=== PATIENT | male | born 1965 | race Caucasian/White ===

== ENCOUNTER 2018-03-26 15:14 | Emergency (ER) ==
[2018-03-26 15:19] VITALS: BP 149/103; TEMP 97.2; BMI 26.8
--- NOTE | 2018-03-26 15:42 | ED.PDOC ---
General ED Provider: Dr. KRIS MUSA Chief Complaint: Extremity Pain/Injury Stated Complaint: Patient is a 52 year old male who comes to the ER with pain in left leg from hip to knee. He denies any obvious injury, states walk with a limp, in a wheelchair at the moment. Admits use of Methamphetamine last week. Has not taken any Tylenol or Motrin Time Seen by Physician: 15:30 Mode of Arrival: Walk-In Information Source: Patient Nursing and Triage Documentation Reviewed and Agree: Yes Does patient meet sepsis criteria?: No System Inflammatory Response Syndrome: Not Applicable Sepsis Protocol: For patient's 13 years and over: Temp is 96.8 and below OR 101 and greater Pulse >90 BPM Resp >20/minute Acutely Altered Mental Status Are patient's symptoms suggestive of a new infection, such as: -Pneumonia -Skin, Soft Tissue -Endocarditis -UTI -Bone, Joint Infection -Implantable Device -Acute Abdominal Infection -Wound Infection -Meningitis -Blood Stream Catheter Infection -Unknown Review of Systems - Review Of Systems Constitutional: Reports: No symptoms Respiratory: Reports: No symptoms Cardiac: Reports: No symptoms GI: Reports: No symptoms : Reports: No symptoms Musculoskeletal: Reports: Joint pain Skin: Reports: No symptoms Neurological: Reports: Anxiety All Other Systems: Reviewed and Negative Past Medical History - Past Medical History Previously Healthy: Yes Endocrine: Reports: None Cardiovascular: Reports: Hypertension Respiratory: Reports: None Hematological: Reports: None Gastrointestinal: Reports: None Genitourinary: Reports: None Neuro/Psych: Reports: Anxiety Musculoskeletal: Reports: Arthritis, Joint Pain Cancer: Reports: None - Surgical History General Surgical History: Reports: Back Surgery, Other (Facial surgeries ) - Family History Family History: Reports: None - Social History Smoking Status: Heavy tobacco smoker Hx Substance Use: Yes (meth a week ago) Alcohol Screening: None - Immunizations Tetanus Shot up to Date: Yes Physical Exam - Physical Exam Appearance: Well-appearing, No pain distress, Well-nourished Eyes: ROSEMARY, EOMI, Conjunctiva clear ENT: Ears normal, Nose normal, Oropharynx normal Respiratory: Airway patent, Breath sounds clear, Breath sounds equal, Respirations nonlabored Cardiovascular: RRR, Pulses normal, No rub, No murmur GI/: Soft, Nontender, No masses, Bowel sounds normal, No Organomegaly Musculoskeletal: Limited ROM (at the left hip ) Skin: Warm, Dry, Normal color Neurological: Sensation intact, Motor intact, Reflexes intact, Cranial nerves intact, Alert, Oriented Psychiatric: Affect appropriate, Mood appropriate Interpretation - Radiology Interpretation Radiology Interpretation By: ED Physician Radiology Results: No acute changes Exam Interpreted: Other (x ray of hip, femur and Knee. ) Critical Care Note - Critical Care Note Total Time (mins): 0 Course - Course Orders, Labs, Meds: Orders Category Date Time Status Ibuprofen [Motrin] MEDS 03/26/18 15:43 Discontinued 800 mg PO ONCE STA FEMUR, LEFT 2 VIEWS Stat RADS 03/26/18 15:42 Taken HIP, LEFT 2 VIEWS Stat RADS 03/26/18 15:42 Taken KNEE, LEFT 4 VIEWS Stat RADS 03/26/18 15:42 Taken Medications Discontinued Medications Generic Name Dose Route Start Last Admin Trade Name Freq PRN Reason Stop Dose Admin Ibuprofen 800 mg 03/26/18 15:43 03/26/18 16:10 Motrin PO 03/26/18 15:44 800 mg ONCE STA Administration Vital Signs: Temp Pulse Resp BP Pulse Ox 03/26/18 15:15 97.2 F L 110 H 16 149/103 H 96 Departure - Departure Time of Disposition: 16:26 Disposition: HOME SELF-CARE Discharge Problem: Hip pain, left Leg pain, diffuse Qualifiers: Laterality: left Qualified Code(s): M79.605 - Pain in left leg Instructions: Leg Pain (ED) Condition: Stable Pt referred to PMD for follow-up: Yes IPMP verified?: No Additional Instructions: Take medications as prescribed Follow up with the clinic in 3 days Prescriptions: Ibuprofen [Motrin] 600 mg PO Q6H PRN #30 tablet PRN Reason: Analgesia Allergies/Adverse Reactions: Allergies codeine Adverse Reaction (Verified 03/26/18 15:21) Home Medications: Ambulatory Orders Ibuprofen [Motrin] 600 mg PO Q6H PRN #30 tablet 03/26/18 Disposition Discussed With: Patient
[2018-03-26] MEDS ORDERED: MOTRIN PO STA (15:43)
--- NOTE | 2018-03-27 07:39 | DI ---
EXAM: Left hip two-view HISTORY: Left hip pain with radiation to the COMPARISON: None FINDINGS: No fracture or dislocation. Mild osteoarthritis left hip with joint space narrowing and sm all osteophyte formation. No focal soft tissue abnormality. IMPERSSION: Mild osteoarthritis left hip.
--- NOTE | 2018-03-27 07:39 | DI ---
EXAM: Left femur, two-view HISTORY: Left hip pain with radiation to the knee COMPARISON: None FINDINGS: The bones are normal. Alignment is normal. Small metallic foreign body measuring 4 mm is s een about the medial femur, appears to be in the soft tissues on corresponding radiograph of the knee . Mild quadriceps tendon enthesopathy. IMPERSSION: 1. No fracture or dislocation. 2. Small metallic foreign body as described.
--- NOTE | 2018-03-27 07:42 | DI ---
EXAM: Left knee four views HISTORY: Left knee pain with radiation to the COMPARISON: None FINDINGS: No fracture or dislocation. Small retropatellar osteophytes. Medial, lateral, patellofem oral compartment normal height. There is a 4 mm metallic foreign body located in the soft tissues med ial to the distal femur. No joint effusion. Mild quadriceps tendon enthesopathy. IMPERSSION: 1. No fracture or dislocation. 2. Mild patellofemoral osteoarthritis. 3. Small foreign body as described.
== END 2018-03-26 16:35 | disposition home or self-care (01) ==
LOC: ED 15:14
DX: M25.552 Pain in left hip (principal); M79.605 Pain in left leg; M25.562 Pain in left knee; F17.210 Nicotine dependence, cigarettes, uncomplicated; I10 Essential (primary) hypertension
CPT/HCPCS: 99282